=== PATIENT | female | born 1980 | race Caucasian/White ===

== ENCOUNTER 2019-11-19 08:03 | Day surgery (SDC) | payer BC ==
[~2019-11-19] VITALS: Ht 175.3 cm; Wt 74.4 kg
[2019-11-19 08:26] VITALS: BP 122/88; PULSE 81; TEMP 98.1
--- NOTE | 2019-11-19 08:35 | NUR ---
TO RM AT 0805- CALL LIGHT IN REACH AT BEDSIDE.
[2019-11-19 09:30] VITALS: BP 117/77; PULSE 74; TEMP 98.4
--- NOTE | 2019-11-19 09:30 | NUR ---
Pt returned via cart to [facility]. Spouse in room. VSS-see flowsheet. Assisted pt to recliner. Call light in reach. Requested water but refused food at this time.
[2019-11-19 09:45] VITALS: BP 105/68; PULSE 65
[2019-11-19 10:00] VITALS: BP 102/65; PULSE 64
--- NOTE | 2019-11-19 10:25 | NUR ---
VS remain stable-see flowsheet. IV removed and pressure dressing applied to site. Dr Vasquez in to visit with pt post procedure. Discharge teaching completed, verbalized understanding. Taken via wheelchair to private vehicle for dc home with spouse driving.
== END 2019-11-19 10:25 | disposition home or self-care (01) ==
LOC: SDCO 08:03
DX: Z12.11 Encounter for screening for malignant neoplasm of colon (principal); Z80.0 Family history of malignant neoplasm of digestive organs
CPT/HCPCS: J2250; J3010; J7030